=== PATIENT | female | born 1990 | race Two or more races ===

== ENCOUNTER 2020-04-09 02:25 | Outpatient (CLI) | payer MEDICAID ==
[2020-04-09] MEDS ORDERED: ONDANSETRON HCL INJ/PF 4 MG/2 ML SDV IV ONE (03:14)
[2020-04-09] MEDS ORDERED: RINGERS SOLUTION,LACTATED 1,000 ML IV ONE (03:15)
[2020-04-09 03:17] LABS: APPEARANCE,URINE SLIGHTLY-CLOUDY; BILIRUBIN,URINE NEGATIVE (NEGATIVE); COLOR,URINE YELLOW; GLUCOSE, URINE NEGATIVE (NEGATIVE); KETONES,URINE NEGATIVE (NEGATIVE); LEUKOCYTE ESTERASE,URINE TRACE (NEGATIVE); NITRITE,URINE NEGATIVE (NEGATIVE); PROTEIN,URINE 30 mg/dL (NEGATIVE); URINE SPECIFIC GRAVITY 1.029
[2020-04-09] MEDS ORDERED: ONDANSETRON HCL INJ/PF 4 MG/2 ML SDV ONE (03:21)
[2020-04-09 03:28] LABS: URINE AMPHETAMINES SCREEN NEGATIVE; URINE BARBITURATES SCREEN NEGATIVE; URINE BENZODIAZEPINES SCREEN NEGATIVE; URINE COCAINE SCREEN NEGATIVE; URINE MARIJUANA (THC) SCREEN NEGATIVE; URINE METHADONE SCREEN NEGATIVE; URINE PHENCYCLIDINE SCREEN NEGATIVE
[2020-04-09 04:24] LABS: ALBUMIN 3.3 g/dL (3.5-5.0); ALKALINE PHOSPHATASE 83 U/L (38-126); AMYLASE 54 U/L (30-110); ANION GAP 8 (5-19); ASPARTATE AMINO TRANSFERASE 42 U/L (14-36); BILIRUBIN,DIRECT 0.4 mg/dL (0.0-0.4); BILIRUBIN,TOTAL 0.5 mg/dL (0.2-1.3); BLOOD UREA NITROGEN 11 mg/dL (7-20); CALCIUM 8.6 mg/dL (8.4-10.2); CARBON DIOXIDE 25 mmol/L (22-30); CHLORIDE 105 mmol/L (98-107); GLUCOSE 85 mg/dL (75-110); POTASSIUM 3.8 mmol/L (3.6-5.0)
[2020-04-09 04:27] LABS: ABSOLUTE LYMPHOCYTES (AUTO) 1.6 10^3/uL (0.5-4.7); ABSOLUTE MONOCYTES (AUTO) 0.6 10^3/uL (0.1-1.4); ABSOLUTE NEUT (AUTO) 9.5 10^3/uL (1.7-8.2); BASOPHILS % (AUTO) 0.3 % (0-2); EOSINOPHILS % (AUTO) 0.2 % (0-6); HEMATOCRIT 32.9 % (36.0-47.0); HEMOGLOBIN 11.4 g/dL (12.0-15.5); LYMPHOCYTES % (AUTO) 13.6 % (13-45); MEAN CORPUSCULAR HEMOGLOBIN 28.5 pg (27.0-33.4); MEAN CORPUSCULAR HGB CONC 34.7 g/dL (32.0-36.0); MEAN CORPUSCULAR VOLUME 82 fl (80-97); MONOCYTES % (AUTO) 4.8 % (3-13); PLATELET COUNT 170 10^3/uL (150-450); RED BLOOD COUNT 4.01 10^6/uL (3.72-5.28); RED CELL DISTRIBUTION WIDTH 13.2 % (11.5-14.0); SEGMENTED NEUTROPHILS % (AUTO) 81.1 % (42-78); TOTAL CELLS COUNTED % (AUTO) 100 %; WHITE BLOOD COUNT 11.7 10^3/uL (4.0-10.5)
[2020-04-09] MEDS ORDERED: ACETAMINOPHEN 325 MG TABLET PO ONE (06:10)
[2020-04-09] MEDS ORDERED: ACETAMINOPHEN 325 MG TABLET ONE (06:10)
--- NOTE | 2020-04-09 06:36 | RADIOLOGY REPORT (SQ) ---
EXAM: US Abdomen Limited, Right Upper Quadrant EXAM DATE/TIME: 04/09/2020 5:11 AM CLINICAL HISTORY: The patient is 29 years old and is Female; RLQ pain TECHNIQUE: Real-time ultrasound of the right upper quadrant with image documentation. COMPARISON: No relevant prior studies available. FINDINGS: LIVER: The liver measures 15.9 cm in diameter. No obvious liver mass. No intrahepatic biliary ductal dilation. Hepatopetal flow is demonstrated in the portal vein. GALLBLADDER: Multiple small stones visualized in the gallbladder. No gallbladder wall thickening or pericholecystic fluid. The diagnostic technologist reported a negative Grimes's sign when the gallbladder was palpated with the ultrasound transducer. COMMON BILE DUCT: No obvious choledocholithiasis. The common bile duct measures 3 mm. PANCREAS: The visualized pancreas appears unremarkable. The distal pancreatic body and tail are obscured by bowel gas. RIGHT KIDNEY: The right kidney measures 10.1 cm in length. No solid or cystic renal mass visualized. No obvious intrarenal stone. No hydronephrosis. AORTA: The visualized abdominal aorta is normal in caliber. IMPRESSION: Cholelithiasis. No sonographic evidence of acute cholecystitis.
--- NOTE | 2020-04-09 06:42 | RADIOLOGY REPORT (SQ) ---
EXAM: US , Limited EXAM DATE/TIME: 04/09/2020 5:33 AM CLINICAL HISTORY: The patient is 29 years old and is Female; complete OB c/l, ALBERTO, placenta status TECHNIQUE: Real-time limited ultrasound of the maternal uterus with image documentation. COMPARISON: No relevant prior studies available. FINDINGS: FETUS: Single intrauterine . POSITION: presentation is breech. HEART RATE: heart rate is 143 bpm. PLACENTA: The placenta is fundal. No placenta previa. AMNIOTIC FLUID: ALBERTO is 7.7 cm. Largest vertical pocket is 4.2 x 6.6 cm. CERVIX: The cervix measures 2.9 cm in length and is closed. IMPRESSION: 1. Single live intrauterine in breech presentation. 2. The cervix measures 2.9 cm in length and is closed.
[2020-04-09 07:37] LABS: HEMATOCRIT 29.1 % (36.0-47.0); HEMOGLOBIN 10.3 g/dL (12.0-15.5); MEAN CORPUSCULAR HEMOGLOBIN 29.5 pg (27.0-33.4); MEAN CORPUSCULAR HGB CONC 35.5 g/dL (32.0-36.0); MEAN CORPUSCULAR VOLUME 83 fl (80-97); PLATELET COUNT 157 10^3/uL (150-450)
[2020-04-09 07:56] LABS: ALBUMIN 2.8 g/dL (3.5-5.0); ALKALINE PHOSPHATASE 80 U/L (38-126); AMYLASE 39 U/L (30-110); ANION GAP 6 (5-19); ASPARTATE AMINO TRANSFERASE 72 U/L (14-36); BILIRUBIN,DIRECT 0.2 mg/dL (0.0-0.4); BILIRUBIN,TOTAL 0.4 mg/dL (0.2-1.3); BLOOD UREA NITROGEN 7 mg/dL (7-20); CALCIUM 8.2 mg/dL (8.4-10.2); CARBON DIOXIDE 24 mmol/L (22-30); CHLORIDE 107 mmol/L (98-107); GLUCOSE 97 mg/dL (75-110); POTASSIUM 3.8 mmol/L (3.6-5.0); TOTAL PROTEIN 5.5 g/dL (6.3-8.2)
== END 2020-04-09 07:31 | disposition home or self-care (01) ==
LOC: LC 02:25
PROVIDERS: ATTEND Student in an Organized Health Care Education/Training Program
DX: O26.52 Maternal hypotension syndrome, second trimester (principal); Z3A.24 24 weeks gestation of pregnancy
CPT/HCPCS: 36415; 87086; 82150; 83615; 83690; 85025; 87070; 87088; 80053; 81001; 80307; 76705; 76815; 59899; J3490; J2405

== ENCOUNTER 2020-04-09 07:39 | Emergency (ER) | payer MEDICAID ==
--- NOTE | 2020-04-09 08:31 | ER Document Report ---
ED General - General Chief Complaint: Low Blood Pressure Stated Complaint: MEDICAL CLEARANCE Time Seen by Provider: 04/09/20 08:09 - HPI Notes: Patient is a 29-year-old female who presents to the emergency department for evaluation through labor and delivery. The patient is , approximate 24 weeks gestational age. She is 1 year out from a gastric sleeve procedure. Last evening she ate a grilled cheese sandwich at approximately 9 PM. She states that 1 in the morning she had multiple episodes of nonbloody, nonbilious emesis. She complained of pain that started in her back and radiated around to her right side. She had pain similar to that last week, but it subsided. The pain this time was not subsiding, it was associated with vomiting, so she presented to L&D for further evaluation. She states she is still feeling the baby move. She did have some vaginal spotting last week, was diagnosed with cervicitis. She was seen upstairs, had blood work, right upper quadrant ultrasound. Ultrasound revealed cholelithiasis without any clear evidence of cholecystitis or choledocholithiasis. Patient's pain has entirely resolved. Her nausea is improved, but while she was there her blood pressure would drop intermittently. She is having blood pressures in the 70s over 30s to 40s. The patient states that she has not had any episodes of emesis this week beyond the few that she had early in the morning. She is still urinating. She states she is eating and drinking normally. Normal bowel movements. No fevers or chills. She does complain of a headache now, mild in the back of her head. She rates it a 2 out of 5, describes it as a soreness. - Related Data Allergies/Adverse Reactions: acetaminophen [From Percocet] Allergy (Verified 04/09/20 03:55) oxycodone [From Percocet] Allergy (Verified 04/09/20 03:55) Home Medications: vitamin Past Medical History - General Information source: Patient - Social History Smoking Status: Never Smoker Drug Abuse: None Family History: Reviewed & Not Pertinent Past Surgical History: Reports: Hx Gastric Bypass Surgery - Gastric sleeve Review of Systems - Review of Systems Constitutional: See HPI EENT: No symptoms reported Cardiovascular: No symptoms reported Respiratory: No symptoms reported Gastrointestinal: See HPI Genitourinary: No symptoms reported Female Genitourinary: See HPI Musculoskeletal: No symptoms reported Skin: No symptoms reported Neurological/Psychological: No symptoms reported Physical Exam - Vital signs Vitals: Resp BP Pulse Ox 31 H 95/44 L 95 04/09/20 07:47 04/09/20 07:47 04/09/20 07:47 - Notes Notes: Vital signs reviewed, please refer to chart. Head is normocephalic, atraumatic. Pupils equal round, reactive to light. Neck is supple without meningismus. Heart is regular rate and rhythm. Lungs are clear to auscultation bilaterally. Abdomen is gravid, nontender, normoactive bowel sounds throughout. Extremities without cyanosis, clubbing. Posterior calves are nontender. Peripheral pulses are equal. Skin is warm and dry. Patient is awake, alert, oriented x3. Cranial nerves II - XII are grossly intact without focal neurological deficits. Strength is plus 5 out of 5 bilateral upper and lower extremities. Sensation is intact. Reflexes symmetrical. Intact [id number], rapid alternating movements, [id number]. Course - Re-evaluation Re-evalutation: 04/09/20 08:30 Patient presents to the emergency department for evaluation via the OB department. I spoke with Dr. Weinstein at length about this patient. She has had lab work, which I reviewed, which is largely unremarkable. It was repeated after getting IV fluids, she is mildly anemic but otherwise mildly low sodium is the only significant finding. Patient's ultrasound was reviewed as well and found to be positive only for stones without evidence of obstruction or infection. Her headache seems to be reproducible, seems more tension headache. She has normal neurological exam. There was a consultation done with Dr. Perkins, states that a KUB would rule out any significant emergency from the geena juma sleeve. At this point I am not even inclined to do this. She has no abdominal tenderness. She certainly does not have any signs consistent with a perforation. Per nursing her blood pressures have been positional here thus far. At this time patient's blood pressures are in the 90s and 100s systolic. She did have 1 blood pressure in the 70s. I will order third liter of fluid. She is not showing any signs of fluid overload. She is currently stable. We will continue to monitor. 04/09/20 10:07 Patient's blood pressures have been stable. She has become agitated, stating that her IV fluids have not been hung. I explained that at this point in the department we are extremely busy, and of course if she wanted to leave I could not keep her against her will. I did explain, however, my concerns about her low blood pressures and the possible etiologies which have not been uncovered. I also explained to her the risks to herself as well as to her . She did agree to stay. She wanted to go to the bathroom, she was escorted there by PCT. Awaiting IV placement for IV fluids and blood culture draw. 04/09/20 12:09 Patient's blood pressure after receiving the 3rd L has been normalized. Her symptoms have abated. She no longer has a headache. She is hungry. She walked to the bathroom without assistance and had no issues. I do not have a clear etiology for this patient's transient hypotension. It seemed more to be positional here. She has absolutely no abdominal tenderness. I do not have a high suspicion for a problem with her gastric sleeve at this time. We talked again about dietary changes for biliary colic and she voiced understanding. She is to return to the ED with worsening or new concerning symptoms of any sort. - Vital Signs Vital signs: Temp Pulse Resp BP Pulse Ox 97.8 F 23 H 101/77 100 04/09/20 07:54 04/09/20 11:32 04/09/20 11:32 04/09/20 11:32 Discharge - Discharge Clinical Impression: Transient hypotension, Biliary colic Condition: Stable Disposition: HOME, SELF-CARE Instructions: Gallbladder Disease ([facility]) Additional Instructions: Your abdominal pain is likely secondary to gallstones. Please avoid fatty and greasy foods as discussed. [place] boring diet, advance as tolerated. I do not have a clear reason for your low blood pressure today. Please try to stay well- hydrated. Your lab work was unremarkable. Cultures are pending, if any abnormality is identified you will be contacted. If you develop increased pain, fevers, chest pain, shortness of breath, or any other new or concerning s ymptoms, please return immediately to the emergency department for evaluation.
[2020-04-09] MEDS ORDERED: NORMAL SALINE 1000 ML 1,000 ML IV ONE (09:21)
[2020-04-09 12:24] VITALS: BP 101/55
== END 2020-04-09 12:30 | disposition home or self-care (01) ==
LOC: ER 07:39
DX: O26.92 Pregnancy related conditions, unspecified, second trimester (principal); O26.612 Liver and biliary tract disorders in pregnancy, second trimester; K80.50 Calculus of bile duct without cholangitis or cholecystitis without obstruction; I95.89 Other hypotension; Z3A.24 24 weeks gestation of pregnancy; Z88.6 Allergy status to analgesic agent; Z98.84 Bariatric surgery status
CPT/HCPCS: 99284; 96360; 96361; 36415; 87040; J7030

== ENCOUNTER 2020-05-14 11:06 | Emergency (ER) | payer MEDICAID ==
--- NOTE | 2020-05-14 11:39 | ER Document Report ---
ED General - General Chief Complaint: Sore Throat Stated Complaint: SORE THROAT,CHILLS,MUSCLE PAIN Time Seen by Provider: 05/14/20 11:22 Primary Care Provider: LISA PUCKETT MD [ACTIVE STAFF] - Follow up as needed JAYANT PRICE MD [ACTIVE STAFF] - Follow up tomorrow - [facility] Notes: 29-year-old female who is 7 months presents to the emergency room for complaints of sore throat for the last 2 days and she is also being treated with Macrobid for UTI by her GOLDBEATER. Patient states she has been feeling more tired. There is a pending referral to cardiology for her hypovolemia that has been chronic. Patient states she has not been eating or drinking as much in the last couple of days. Denies any vaginal bleeding vaginal discharge. Eating and drinking without any issues. Has not taken any Tylenol or ibuprofen. Has an upcoming GOLDBEATER appointment on 05/16/2020. Denies any chest pain, shortness of breath, nausea, vomiting, diarrhea, abdominal pain, flank pain - Related Data Allergies/Adverse Reactions: acetaminophen [From Percocet] Allergy (Verified 04/09/20 03:55) oxycodone [From Percocet] Allergy (Verified 04/09/20 03:55) Past Medical History - General Information source: Patient - Social History Smoking Status: Never Smoker Family History: Reviewed & Not Pertinent Past Surgical History: Reports: Hx Gastric Bypass Surgery - Gastric sleeve Review of Systems - Review of Systems Constitutional: No symptoms reported EENT: See HPI Cardiovascular: No symptoms reported Respiratory: No symptoms reported Gastrointestinal: No symptoms reported Genitourinary: See HPI Female Genitourinary: No symptoms reported Musculoskeletal: No symptoms reported Skin: No symptoms reported Hematologic/Lymphatic: No symptoms reported Neurological/Psychological: No symptoms reported Physical Exam - Vital signs Vitals: Temp Pulse Resp BP Pulse Ox 98.0 F 118 H 18 82/47 L 100 05/14/20 11:24 05/14/20 11:24 05/14/20 11:24 05/14/20 11:24 05/14/20 11:24 - Notes Notes: PHYSICAL EXAMINATION:reviewed vital signs by RN GENERAL: Well-appearing, well-nourished and in no acute distress. HEAD: Atraumatic, normocephalic. EYES: Pupils equal round and reactive to light, extraocular movements intact, conjunctiva are normal. ENT: TM intact with bilateral serous effusion, no erythema. Nares boggy bilaterally, oropharynx with erythema without exudates. Moist mucous membranes. NECK: Normal range of motion, supple without lymphadenopathy LUNGS: Breath sounds clear to auscultation bilaterally and equal. No wheezes rales or rhonchi. HEART: Regular rate and rhythm without murmurs ABDOMEN: Soft, nontender, nondistended abdomen. No guarding, no rebound. No masses appreciated. CVA tenderness appreciated bilaterally Female : deferred Musculoskeletal: Normal range of motion, no pitting or edema. No cyanosis. NEUROLOGICAL: Cranial nerves grossly intact. Normal speech, normal gait. Normal sensory, motor exams PSYCH: Normal mood, normal affect. SKIN: Warm, Dry, normal turgor, no rashes or lesions noted. Course - Re-evaluation Re-evalutation: 05/14/20 15:12 Afebrile, slightly hypotensive otherwise stable, nurses notes reviewed. Patient received a liter of IV fluids. CBC negative for leukocytosis or anemia, CMP negative for medical renal dysfunction, urinalysis does show leukoesterase, ketones and proteinuria. Patient received a gram of Rocephin IVP with blood cultures pending. Rapid flu and rapid strep negative, Covid test pending. Discussed with patient that she is under suspicion for person under investigation for Covid. Advised to self quarantine, wear mask, wash hands frequently until the results of the Covid test are known by her from the health department. Advised to stop taking Macrobid and start Keflex twice a day for 10 days, to go to your GOLDBEATER appointment in 2 days and have a repeat urinalysis done. Urine culture is pending. After performing a Medical Screening Examination, I estimate there is LOW risk for ACUTE APPENDICITIS, BOWEL OBSTRUCTION, ACUTE CHOLECYSTITIS, PERFORATED DIVERTICULITIS, INCARCERATED HERNIA, PANCREATITIS, PELVIC INFLAMMATORY DISEASE, PERFORATED ULCER, ECTOPIC , or TUBO-OVARIAN ABSCESS, thus I consider the discharge disposition reasonable. Also, there is no evidence or peritonitis, sepsis, or toxicity. I have reevaluated this patient multiple times and no significant life threatening changes are noted. The patient and I have discussed the diagnosis and risks, and we agree with discharging home with close follow-up with the understanding that symptoms and presentations can change. We also discussed returning to the Emergency Department immediately if new or worsening symptoms occur. We have discussed the symptoms which are most concerning (e.g., bloody stool, fever, changing or worsening pain, vomiting) that necessitate immediate return. - Vital Signs Vital signs: Temp Pulse Resp BP Pulse Ox 98.5 F 118 H 20 92/56 L 99 05/14/20 14:01 05/14/20 11:24 05/14/20 14:01 05/14/20 14:01 05/14/20 14:01 - Laboratory Result Diagrams: 05/14/20 12:20 05/14/20 12:20 Laboratory results interpreted by me: 05/14/20 05/14/20 05/14/20 11:45 12:20 12:20 Hgb 11.1 L Hct 32.5 L Plt Count 141 L Seg Neutrophils % 80.1 H Sodium 133.2 L Potassium 3.5 L BUN 5 L Creatinine 0.43 L Calcium 7.7 L Total Protein 5.6 L Albumin 2.8 L Beta HCG, Quant 79320.00 H Urine Protein 100 H Urine Ketones 80 H Urine Urobilinogen 4.0 H Ur Leukocyte Esterase MODERATE H Urine Ascorbic Acid 40 H Discharge - Discharge Clinical Impression: UTI (urinary tract infection), Condition: Stable Disposition: HOME, SELF-CARE Instructions: COVID-19 Guidance for Persons Under Investigation, Cephalexin ([facility]), Intravenous (IV) Fluids ([facility]), Sore Throat ([facility]), Urinary Tract Infection ([facility]) Additional Instructions: Your rapid strep, rapid flu were negative. Your Covid test is pending. It is advised that you self quarantine at home, wear your mask, wash your hands until you get the results of your Covid test from the health department. frequently urinalysis did show that you have a UTI, stop taking the Macrobid and start Keflex twice a day for 10 days. Urine culture is pending. follow-up with your GOLDBEATER within the next 24 to 48 hours to be seen for repeat urinalysis. You received IV fluids please help increased your blood pressure. Return immediately for any new or worsening symptoms. Follow up with primary care provider, call tomorrow to make followup appointment. Prescriptions: Cephalexin Monohydrate [Keflex 500 mg Capsule] 500 mg PO BID #20 capsule Forms: Return to Work Referrals: JAYANT PRICE MD [ACTIVE STAFF] - Follow up tomorrow LISA PUCKETT MD [ACTIVE STAFF] - Follow up as needed
[2020-05-14] MEDS ORDERED: NORMAL SALINE 1000 ML 1,000 ML IV ONE (11:43)
[2020-05-14 12:21] LABS: APPEARANCE,URINE CLOUDY; BILIRUBIN,URINE NEGATIVE (NEGATIVE); COLOR,URINE AMBER; GLUCOSE, URINE NEGATIVE (NEGATIVE); KETONES,URINE 80 mg/dL (NEGATIVE); LEUKOCYTE ESTERASE,URINE MODERATE (NEGATIVE); NITRITE,URINE NEGATIVE (NEGATIVE); PROTEIN,URINE 100 mg/dL (NEGATIVE); URINE SPECIFIC GRAVITY 1.024
[2020-05-14 12:38] LABS: A TYPE INFLUENZA AG NEGATIVE (NEGATIVE); B INFLUENZA AG NEGATIVE (NEGATIVE)
[2020-05-14] MEDS ORDERED: CEFTRIAXONE 1 GM/D5W RTU 1 GM/50 ML RTUPB IV ONE (12:39)
[2020-05-14 12:47] LABS: ABSOLUTE LYMPHOCYTES (AUTO) 0.6 10^3/uL (0.5-4.7); ABSOLUTE MONOCYTES (AUTO) 0.3 10^3/uL (0.1-1.4); ABSOLUTE NEUT (AUTO) 3.9 10^3/uL (1.7-8.2); BASOPHILS % (AUTO) 0.3 % (0-2); EOSINOPHILS % (AUTO) 0.1 % (0-6); HEMATOCRIT 32.5 % (36.0-47.0); HEMOGLOBIN 11.1 g/dL (12.0-15.5); LYMPHOCYTES % (AUTO) 13.1 % (13-45); MEAN CORPUSCULAR HEMOGLOBIN 27.5 pg (27.0-33.4); MEAN CORPUSCULAR VOLUME 81 fl (80-97); MONOCYTES % (AUTO) 6.4 % (3-13); PLATELET COUNT 141 10^3/uL (150-450); RED BLOOD COUNT 4.01 10^6/uL (3.72-5.28); RED CELL DISTRIBUTION WIDTH 13.1 % (11.5-14.0); SEGMENTED NEUTROPHILS % (AUTO) 80.1 % (42-78); TOTAL CELLS COUNTED % (AUTO) 100 %; WHITE BLOOD COUNT 4.9 10^3/uL (4.0-10.5)
[2020-05-14 13:06] LABS: ALBUMIN 2.8 g/dL (3.5-5.0); ALKALINE PHOSPHATASE 104 U/L (38-126); ANION GAP 5 (5-19); ASPARTATE AMINO TRANSFERASE 29 U/L (14-36); BILIRUBIN,DIRECT 0.2 mg/dL (0.0-0.4); BILIRUBIN,TOTAL 0.7 mg/dL (0.2-1.3); BLOOD UREA NITROGEN 5 mg/dL (7-20); CALCIUM 7.7 mg/dL (8.4-10.2); CARBON DIOXIDE 24 mmol/L (22-30); CHLORIDE 104 mmol/L (98-107); GLUCOSE 85 mg/dL (75-110); POTASSIUM 3.5 mmol/L (3.6-5.0); TOTAL PROTEIN 5.6 g/dL (6.3-8.2)
[2020-05-14 14:32] VITALS: BP 92/56
== END 2020-05-14 14:32 | disposition home or self-care (01) ==
LOC: ER 11:06
DX: O23.40 Unspecified infection of urinary tract in pregnancy, unspecified trimester (principal); O99.519 Diseases of the respiratory system complicating pregnancy, unspecified trimester; J02.9 Acute pharyngitis, unspecified; O26.819 Pregnancy related exhaustion and fatigue, unspecified trimester; O99.280 Endocrine, nutritional and metabolic diseases complicating pregnancy, unspecified trimester; E86.1 Hypovolemia; O99.840 Bariatric surgery status complicating pregnancy, unspecified trimester; Z20.828 Contact with and (suspected) exposure to other viral communicable diseases; Z3A.00 Weeks of gestation of pregnancy not specified; Z88.8 Allergy status to other drugs, medicaments and biological substances; Z88.6 Allergy status to analgesic agent; Z88.5 Allergy status to narcotic agent
CPT/HCPCS: 99284; 96361; 96365; 36415; 87040; 87070; 87086; 87880; 84702; 85025; 87635; 87077; 80053; 81001; 87804; J7030; J0696; C9803